=== PATIENT | female | born 1985 | race Caucasian/White ===

== ENCOUNTER 2022-05-19 08:43 | Emergency (ER) | payer BC ==
--- OUTSIDE RECORDS SUMMARY | 2022-05-19 08:45 | XMS REPORT | Clinical Summary ---
:[address] [facility] MD [facility] Address [address] [place] [address] Care Team Providers Name Role Phone Samantha Johnston MD Primary Care Provider [phone] Ian Sneed MD Unavailable Allergies Active Allergy Reactions Severity Noted Date Comments Cefuroxime Axetil Hives 05/15/2017 Medications Medication Sig Dispensed Refills Start Date End Date Status frovatriptan as needed. 3 09/30/2016 Activ e (FROVA) 2.5 MG tablet cetirizine (ZyrTEC) Take 10 mg by 0 Active 10 mg tablet mouth daily. etonogestrel 0 02/07/2020 Active (NEXPLANON SUBDERMAL) cholecalciferol, Take by mouth. 0 Active vitamin D3, (Vitamin D3) 50 mcg (2,000 unit) capsule NUVARING 0.12-0.015 INSERT 11 05/02/2017 09/30/19 Discontinued mg/24 hr vaginal VAGINALLY 22 (Other ) ring DIRECTED. ergocalciferol 0 09/24/2020 09/30/19 Disc ontinued (DRISDOL) 50,000 22 (Ot her ) units capsule Active Problems Problem Noted Date Lump in right breast 05/15/2017 Overview: Images from the original note were not i ncluded. H/O RIGHT breast lump evaluated in 2017 with US findings suggestive of normal ridge of fibroglandular tissue with mild fibrocystic changes and cysts noted. Imaging performed at [facility], [place]: 12/28/2019 BDMMG+US (BIRADS 3) 08/28/2020 R US (BIRADS 2) 01/03/2020 [facility] Common Hereditary Cance r Panel is negative for 47 gene(s) variants that are associated with genetic disorders. Encounters Date Type Specialty Care Team Description 10/15/2021 Telemedicine Genetics Yuki Laguna Family history of Y, DRY COLOR TESTER malignant neoplasm of Melyssa, breast Linda B, MS, CGC 09/30/2021 Clinical Support Cancer Prevention Yuki Laguna No Sh ow Y, DRY COLOR TESTER 09/30/2021 Ancillary Procedure Radiology Lump in right breast; Dense breast 09/30/2021 Ancillary Procedure Radiology Lump in right breast; Dense breast 09/30/2021 Office Visit Cancer Prevention Klever Baker L, Lump in right breast (Primary Dx); DRY COLOR TESTER Dense breast; Yuki Laguna Family history of malignant neoplasm of breast; Y, DRY COLOR TESTER Encounter for o ther screening for malignant neoplasm of breast 09/30/2021 Travel after 05/19/2021 Immunizations Name Administration Dates Next Due SoundOut SARS-CoV-2 Vaccination 08/18/2021 Surgical History Surgery Date Site/Laterality Comments SECTION, LOW TRANSVERSE 08/03/2012 - 08/02/2013 LASIK 01/01/2017 - 01/30/2017 Medical History Medical History Date Comments Migraine 07-03-2016 First time receiving treatment for Unspecified lump in unspecified breast 01-01-2017 A bout when I first noticed. Uncomplicated asthma 1992 rescue inhaler prn asthma due to seasonal allergies o r exercise Polycystic ovarian syndrome 2001 Discharge from nipple 07/2016 spontaneous, bilat eral R>L, stopped 11/2016 / now occurs only with manipulation Family History Medical History Relation Name Comments Breast cancer Maternal Aunt Salvador Samayoa Diabetes Maternal Grandmother Kaela Shelby Stroke Maternal Grandmother Kaela Shelby Colon cancer Maternal Uncle 1 Colt Shelby >50 Diabetes Maternal Uncle 2 Tahir Shelby Breast cancer Mother Cindy Esparza Lumpectomy, radi ation Colon cancer Paternal Cousin 1 Early 40'sSurg irene, radiation Diabetes Paternal Grandfather Yamil Esparza Multiple Myeloma Paternal Grandfather Yamil Howebrey 60's Breast cancer Paternal Grandmother Jessica Araujokerman 80's Ovarian cancer Neg Hx Pancreatic cancer Neg Hx Relation Name Status Comments Father Alive Maternal Aunt Salvador Samayoa Alive Maternal Grandfather (Age 90's) Maternal Grandmother Kaela Shelby (Age 80's-90's) Maternal Uncle 1 Colt Shelby Alive Parkinson's dis ease Maternal Uncle 2 Tahir Shelby Alive Maternal Uncle 3 (Age 80's) Maternal Uncle 4 Alive Maternal Uncle 5 Alive Maternal Uncle 6 (Age 80's) Maternal Uncle 7 (Age 90's) Mother Cindy Esparza Alive JEANA/BSO in 40's, heavy bleeding, uterin e fiboirds Nephew Alive Paternal Cousin 1 Alive Paternal Cousin 2 Alive Paternal Grandfather Yamil Esparza (Age 80's) Paternal Grandmother Jessica Maguire (Age 93) Paternal Uncle (Age 68) Sister Alive Son 1 Alive Son 2 Alive Social History Tobacco Use Types Packs/Day Years Used Date Former Smoker 0.25 1 Smokeless Tobacco: Never Used Comments: Would randomly smoke between 1 8- 19 Alcohol Use Standard Drinks/Week Comments Yes 1 (1 standard drink = 0.6 oz pure alcoho l) Sex Assigned at Date Recorded Female 09/23/2021 8:33 PM [employer] Job Start Date Occupation Industry Not on file Not on file Not on file Obstetrics History Para Term AB IAB SAB Ectopic Multiple Living Live Births 2 1 2 Date Outcome GA Total Labor/2nd/3rd Weight Sex Delivery Anes PTL Liset A 1 A5 Name Clin Labor AB Comments 1 set of twins Menarche: at age 13 Parity: at age 26 OCPs - pills x 3 years and NuvaRing x 9 years. Nexplanon since 2019 to current. HRTL clomic x 1 cycle Patient denies any history of abnormal p ap smears. Patient denies any history of breast stephy jose or breast biopsy. Last Filed Vital Signs Vital Sign Reading Time Taken Comments Blood Pressure 131/87 09/30/2021 9:49 AM [employer] Pulse 100 09/30/2021 9:49 AM [employer] Temperature - - Respiratory Rate 18 09/30/2021 9:49 AM [employer] Oxygen Saturation - - Inhaled Oxygen Concentration - - Weight 77.6 kg (171 lb 1.2 oz) 09/30/2021 9:49 AM [employer] Height 170.5 cm (5' 7.13") 09/30/2021 9:49 AM [employer] Body Mass Index 26.69 09/30/2021 9:49 AM [employer] Plan of Treatment Health Maintenance Due Date Last Done Comments COVID-19 Vaccination (2 - Booster for Dane series) 10/13/2021 08/18/2021 Procedures Procedure Name Priority Date/Time Associated Comments Diagnosis US BREAST COMPLETE Routine 09/30/2021 12:47 PM Lump in right R esults for this BILATERAL [employer] breast procedure are in Dense breast the results section. MAMMO DIGITAL Routine 09/30/2021 11:26 AM Lump in right Result s for this DIAGNOSTIC BILATERAL [employer] breast procedure are in W NEAL Dense breast the results section. after 05/19/2021 Results US Breast Complete - Bilateral (09/30/2021 12:47 PM [employer]) Anatomical Region Laterality Modality Breast Bilateral Ultrasound Specimen (Source) Anatomical Collection Method Collection Time Re ceived Time Location / / Volume Laterality 09/30/2021 2:08 PM [employer] Impressions 09/30/2021 2:08 PM [employer] 1: Lymph node in the axillary tail of the left breast is benign and correlates with mammography. 2: Scattered cysts in both breasts are benign. Recommend continued clinical management of the areas of concern to in clude correlation with physical exam, and recommend initiation of annual scree polo mammography when clinically indicated, per ACR/SBI guidelines. The findings and recommendations were di scussed with the patient at time of the examination. The importance of clinical follow up was stressed. BI-RADS Category 2: Benign Finding(s) Narrative 09/30/2021 2:08 PM [employer] CLINICAL INDICATION: Patient is a 35 year old female and is s een for multiple right breast lumps. Strong family history of breast cancer. FILMS COMPARED Prior imaging studies performed at [facility] location on 08/30/2020, and at [facility] on 09/28/2020 were reviewed. Images were obtained in multiple scannin g planes. Real-time sonographic imaging of both br easts (including all 4 quadrants and retroareolar region) was performed. 1: There is an oval normal lymph node in the axillary tail of the left breast. This finding correlates with mammography . 2: There are benign scattered anechoic cysts noted in both breasts. No suspicious solid mass or acoustic abnorm ality is identified. A cluster of anechoic cysts are noted at the right br east 1 o'clock position 6 cm from the nipple that possibly correlates with pat ient's palpable area of concern. No suspicious sonographic abnormality is id entified at the right breast 1 o'clock position 11 cm from the nipple or 6 o'cl ock position 1 cm from the nipple to correlate with the additional palpable a reas of concern. Procedure Note Natali Brown MD - 09/30/2021 CLINICAL INDICATION: Patient is a 35 year old female and is s een for multiple right breast lumps. Strong family history of breast cancer. FILMS COMPARED Prior imaging studies performed at an [facility] [place] location on 08/30/2020, and at [facility] on 09/28/2020 were reviewed. Images were obtained in multiple scannin g planes. Real-time sonographic imaging of both br easts (including all 4 quadrants and retroareolar region) was performed. 1: There is an oval normal lymph node in the axillary tail of the left breast. This finding correlates with mammography . 2: There are benign scattered anechoic c ysts noted in both breasts. No suspicious solid mass or acoustic abnorm ality is identified. A cluster of anechoic cysts are noted at the right br east 1 o'clock position 6 cm from the nipple that possibly correlates with pat ient's palpable area of concern. No suspicious sonographic abnormality is id entified at the right breast 1 o'clock position 11 cm from the nipple or 6 o'cl ock position 1 cm from the nipple to correlate with the additional palpable a reas of concern. IMPRESSION: 1: Lymph node in the axillary tail of th e left breast is benign and correlates with mammography. 2: Scattered cysts in both breasts are b enign. Recommend continued clinical management of the areas of concern to in clude correlation with physical exam, and recommend initiation of annual scree polo mammography when clinically indicated, per ACR/SBI guidelines. The findings and recommendations were di scussed with the patient at time of the examination. The importance of clinical follow up was stressed. BI-RADS Category 2: Benign Finding(s) Yuki Laguna APN IMG US ORDERABLES (ABNORMAL) Mammography Digital Diagnostic Bilateral with Neal (09/30/2021 11:26 AM [employer]) Anatomical Region Laterality Modality Breast Bilateral Mammography Specimen (Source) Anatomical Collection Method Collection Time Re ceived Time Location / / Volume Laterality 09/30/2021 1:16 PM [employer] Impressions 09/30/2021 1:16 PM [employer] Asymmetry in the left axillary tail is indeterminate. Ultrasound has been ordered for further evaluation and sched uled to immediately follow. BI-RADS Category 0: Incomplete: Needs Additional Imaging Caitlyn luation Narrative 09/30/2021 1:16 PM [employer] CLINICAL INDICATION: Patient is a 35 year old female and is s een for breast lump right breast. Strong family history of breast cancer. MAMMO DIGITAL DIAGNOSTIC BILATERAL W SUZANNE O Digital Mammogram evaluated with Compute r Aided Detection (CAD). COMPARISON: Prior imaging studies performed at an [place] [facility] on 04/21/2019 and 12/28/2019, and at [facility] on 09/28/2020 were reviewed. FINDINGS: The breasts are extremely dense, which l owers the sensitivity of mammography. There is an asymmetry in the axillary ta il of the left breast. This may represent a prominent lymph node. Patien t had recent vaccination left arm approximately 1 month ago. Bilateral scattered oval masses are most consistent with benign cysts, as demonstrated on previous sonography. N o suspicious mammographic abnormality is identified in the inferior or superior r ight breast to correlate with the palpable areas of concern, as indicated with triangular markers. Tomosynthesis performed in CC and MLO pr ojections. Procedure Note Natali Brown MD - 09/30/2021 CLINICAL INDICATION: Patient is a 35 year old female and is s een for breast lump right breast. Strong family history of breast cancer. MAMMO DIGITAL DIAGNOSTIC BILATERAL W SUZANNE O Digital Mammogram evaluated with Compute r Aided Detection (CAD). COMPARISON: Prior imaging studies performed at an [place] [facility] on 04/21/2019 and 12/28/2019, and at [facility] on 09/28/2020 were reviewed. FINDINGS: The breasts are extremely dense, which l owers the sensitivity of mammography. There is an asymmetry in the axillary ta il of the left breast. This may represent a prominent lymph node. Patien t had recent vaccination left arm approximately 1 month ago. Bilateral scattered oval masses are most consistent with benign cysts, as demonstrated on previous sonography. No suspicious mammographic abnormality is identified in the inferior or superior r ight breast to correlate with the palpable areas of concern, as indicated with triangular markers. Tomosynthesis performed in CC and MLO pr ojections. IMPRESSION: Asymmetry in the left axillary tail is i ndeterminate. Ultrasound has been ordered for further evaluation and sched uled to immediately follow. BI-RADS Category 0: Incomplete: Needs Additional Imaging Caitlyn luation Yuki Laguna APN IMG MAMMOGRAPHY ORDERABLES after 05/19/2021 Insurance Payer Benefit Plan / Subscriber ID Effective Dates Phone Addre ss Type Group [employer] [place] O [id number] 2019-Present PO AFSHAN X [id number] O [employer] [employer] [phone] Care Teams Shake Cutter Relationship Specialty Start Date End Date Samantha Johnston PCP - General Breast Surgery 05/12/17 MD Lola [address] [place] [id number] Ian Sneed MD PCP - External Referring 05/12/[address] [place] [id number]
--- OUTSIDE RECORDS SUMMARY | 2022-05-19 08:46 | XMS REPORT | Continuity of Care Document ---
:1985 Author Organization [facility] t Address [address] [place] [address] Care Team Providers Name Role Phone [phone] Primary Care Physician Unavailable SYSTEM, PROVIDER NOT IN Attending Clinician Unavailable YUKI FERRIS Attending Clinician Unavailable Yuki Ferris APN Attending Clinician Melyssa LOCKETT, Linda CLOUD Attending Clinician [phone] Klever Baker APN Attending Clinician KLEVER BAKER Attending Clinician Unavailable TIMBO CARRERO Attending Clinician Unavailable ALAINA CORDERO Attending Clinician Unavailable Payers Payer Name Policy Type Policy Number Effective Date Expiration Date S glynn [place] [id number] 2019 BLUE/BLUE 00:00:00 [employer] HMO POS OPEN [id number] 2016 2018 ACCESS 00:00:00 00:00:00 Problems Condition Condition Condition Status Onset Resolution Last Treating Co mments Source Name Details Category Date Date Treatment Clinician Date Lump in Lump in Disease Active 2016-08 Overview: Univ ers right right 0-13 Formattin ity of breast breast 00:00: g of this [place] 00 note might be Anderso different n from the Cancer original. Center Images from the original note were not included. H/O RIGHT breast lump evaluated in 2017 with US findings suggestiv e of normal ridge of fibroglan dular tissue with mild fibrocyst ic changes and cysts noted.Abigail ging performed at [facility], [place] t:12/28/19 20 BDMMG+US (BIRADS 3)08/28/19 21 R US (BIRADS 2) 0 [facility] Cancer Panel is negative for 47 gene(s) variants that are associate d with genetic disorders . Allergies, Adverse Reactions, Alerts Allergy Allergy Status Severity Reaction(s) Onset Inactive Treating Comm ents Source Name Type Date Date Clinician CEFUROXI DRUG Active Hives 2016-08 ME INGREDI 0-13 Anderso AXETIL 00:00: n 00 CEFUROXI DRUG Active Hives 2016-08 ME INGREDI 0-13 Anderso AXETIL 00:00: n 00 CEFUROXI DRUG Active Hives 2016-08 ME INGREDI 0-13 Anderso AXETIL 00:00: n 00 CEFUROXI DRUG Active Hives 2016-08 MD BEVERLY INGREDI 0-13 Anderso AXETIL 00:00: n 00 CEFUROXI DRUG Active Hives 2016-08 ME INGREDI 0-13 Anderso AXETIL 00:00: n 00 CEFUROXI DRUG Active Hives 2016-08 ME INGREDI 0-13 Anderso AXETIL 00:00: n 00 Cefuroxi Propensi Active Hives 2016-08 Univer s me ty to 0-13 ity of Axetil adverse 00:00: [place] reaction 00 [facility] Family History Family Member Diagnosis Comments Start Date Stop Date Source Natural father [facility] MD [facility] Maternal aunt Breast cancer Universi ty [facility] Espinoza son Cancer Center Maternal [facility] MD [facility] Maternal [facility] MD [facility] Maternal Stroke [facility] MD [facility] Maternal uncle Colon cancer Universi ty [facility] MD Doran son Cancer Center Maternal uncle Diabetes [facility] Espinoza son Cancer Center Natural mother Breast cancer Univers ity [facility] Espinoza son Cancer Center Nephew [facility] P[facility] Paternal Diabetes [facility] MD [facility] Paternal Multiple Myeloma [facility] Paternal [facility] [place] [facility] Friend Paternal uncle [facility] MD Espinoza tineo Cancer Center Natural sister [facility] MD Espinoza tineo Cancer Center Natural son [facility] MD Espinoza tineo [facility] Center Family member Ovarian cancer [facility] [place] MD Espinoza tineo [facility] Center Family member Pancreatic cancer Univ [facility] [place] MD Espinoza tineo [facility] Center Social History Social Habit Start Date Stop Date Quantity Comments Source Alcohol intake 2021-10-15 2021-10-15 Current drinker Unive rsity of 00:00:00 00:00:00 of alcohol [place] MD Espinoza tineo (finding) [facility] Tobacco use and 2020-09-28 2020-09-28 Smokeless Universit y of exposure 00:00:00 00:00:00 tobacco non-user [facility] Tobacco Comment 2020-09-28 2020-09-28 Would randomly Unive rsity of 00:00:00 00:00:00 smoke between [place] MD Louise rios [facility] Cigarettes smoked 2020-09-28 2020-09-28 Univers ity of current (pack per 00:00:00 00:00:00 [facility] Sh[facility] ) - Reported Cancer Ce nter Cigarette 2020-09-28 2020-09-28 University of pack-years 00:00:00 00:00:00 [place] MD Espinoza tineo [facility] Sex Assigned At [birth year] F Universit y of 00:00:00 00:00:00 [place] MD Espinoza tineo [facility] Smoking Status Start Date Stop Date Source Ex-smoker 2020-09-28 00:00:00 2020-09-28 00:00:00 Universi ty [facility] Medications Ordered Filled Start Stop Current Ordering Indication Dosage Frequency Signature Comments Components Source Medication Medication Date Date Medication? Clinician (SIG) Name Name cetirizine Yes 10mg Take 10 mg U nivers (ZyrTEC) 10 2-28 by mouth ity of mg tablet 09:52: daily. [place] Angel Luis gonzales [facility] cholecalcif Yes Take by Uni vers lee, 2-28 mouth. ity of vitamin D3, 09:52: [place] (Vitamin 07 D3) 50 mcg Anderso (2,000 n unit) Cancer capsule Center ergocalcife 2021- No Unive rs rol 09-24 ity of (DRISDOL) 00:00: 00:00 [place] 50,000 00 :00 units Erika capsule n Cancer Center etonogestre Yes Univjef s l 7-07 ity of (NEXPLANON 00:00: [place] SUBDERMAL) 00 MD Erika gonzales Cancer Friend NUVARING 2021- No INSERT Mohini s 0.12-0.015 05-02 VAGINALLY ity of mg/24 hr 00:00: 00:00 [place] vaginal 00 :00 DIRECTED. MD aaron gonzales [facility] frovatripta Yes as needed. Univers n (FROVA) 09-30 ity of 2.5 MG 00:00: [place] tablet 00 MD Erika gonzales [facility] Immunizations Ordered Filled Immunization Date Status Comments Sour e Immunization Name Name Dane SARS-CoV-2 2021-08-18 Completed Univer sity of Vaccination 00:00:00 Ambrosio foss [facility] Friend Vital Signs Vital Name Observation Time Observation Value Comments Source HEIGHT 2020-09-28 11:09:00 170.5 cm WEIGHT 2020-09-28 11:09:00 75.9 kg Systolic blood 2021-09-30 15:49:00 131 mm[Hg] Univer sity of pressure [facility] Diastolic blood 2021-09-30 15:49:00 87 mm[Hg] Unive rsity of pressure [facility] Heart rate 2021-09-30 15:49:00 100 /min Universi ty Luis [facility] Respiratory rate 2021-09-30 15:49:00 18 /min Univ ersity of [facility] Body height 2021-09-30 15:49:00 170.5 cm Universi ty [facility] Body weight 2021-09-30 15:49:00 77.6 kg Universi ty [facility] BMI 2021-09-30 15:49:00 26.69 kg/m2 Universi ty [facility] Procedures Procedure Date / Time Performed Performing Clinician Sour e US BREAST COMPLETE 2021-09-30 18:47:33 Yuki Ferris [facility] [place] BILATERAL MD Cruz [facility] er Center MAMMO DIGITAL 2021-09-30 17:26:00 Yuki Ferris [facility] [place] DIAGNOSTIC BILATERAL W MD [facility] Plan of Care Planned Activity Planned Date Details Comments Source Future Scheduled 2021-10-25 COVID-19 Vaccination Uni [facility] Test 10:07:34 (2 - Booster for [facility] Cancer Dane series) [code Center = COVID-19 Vaccination (2 - Booster for Dane series)] Encounters Start End Encounter Admission Attending Care Care Encounter Source Date/Time Date/Time Type Type Clinicians Facility Department ID 2020-09-14 Outpatient SYSTEMRICK MDA [id number] 11:45:16 PROVIDER Rogelio gonzales 2021-10-15 2021-10-15 Outpatient EL RICK FERRIS MDA [id number] 10:01:33 10:29:15 YUKIMARY LOU gonzales 2021-10-15 2021-10-15 Telemedici Yuki Ferris [id number] Univers 10:00:00 10:29:15 Linda Beard [id number] ity of 3.412.2.7 [place] .3.112109 [facility] 2021-09-30 2021-09-30 Clinical Jase 1.2.840.1 [id number] Univers 15:00:00 15:20:00 Support Yuki Lopez [id number] ity of 3.412.2.7 [place] .3.000537 MD Myrna gonzales [facility] 2021-09-30 2021-09-30 Ancillary 1.2.840.1 [id number] Univers 12:15:00 14:00:00 Procedure [id number] it y of 3.412.2.7 [place] .3.760434 MD [facility] christian [facility] 2021-09-30 2021-09-30 Ancillary 1.2.840.1 [id number] [facility] 11:30:00 12:30:00 Procedure [id number] it y of 3.412.2.7 [place] .3.024707 .8 [facility] 2021-09-30 2021-09-30 Outpatient EL MDA MDA [id number] 11:27:52 11:27:52 Rogelio o n 2021-09-30 2021-09-30 Outpatient EL MDA MDA [id number] 10:41:03 10:41:03 Rogelio o n 2021-09-30 2021-09-30 Office Klever Baker 1.2.840.1 [id number] [facility] 10:00:00 10:38:39 Visit Yuki Ferris Y 93082.1.1 ity of 3.412.2.7 [place] .3.048718 .8 [facility] 2021-09-30 2021-09-30 Outpatient KESHAWN, MDA MDA [id number] 09:37:40 10:38:39 KLEVER Rogelio o christian 2021-09-30 2021-09-30 Travel 1.2.840.1 [id number] [place] [facility] 00:00:00 00:00:00 [id number] 350.1.13.41 ity of 3.412.2.7 2.[place].7.3.698 [place] .[id number] 084.8 .8 [facility] 2020-09-28 2020-09-28 Outpatient [facility], MDA MDA [id number] 13:33:35 13:33:35 TIMBO Mercado o christian 2020-09-28 2020-09-28 Outpatient EL REFINEI, MDA MDA [id number] 13:03:28 13:03:28 ALAINA gonzales 2020-09-28 2020-09-28 Outpatient EL REFINETTI, MDA MDA [id number] 13:03:27 13:03:27 ALAINA Mercado o christian 2020-09-28 2020-09-28 Outpatient REFINETTI, MDA MDA [id number] 13:03:25 13:03:25 ALAINA Vasquezers o christian 2020-09-28 2020-09-28 Outpatient VICKI CORDERO MDA MDA [id number] 13:03:24 13:03:24 ALAINA Vasquezers o christian 2020-09-28 2020-09-28 Outpatient VICKI CARRERO MDA MDA [id number] 12:47:21 12:47:21 TIMBO gonzales 2020-09-28 2020-09-28 Outpatient VICKI CORDERO, RICK CABRERA [id number] 11:04:10 12:27:10 ALAINA Rogelio o christian 2020-09-28 2020-09-28 Outpatient VICKI CORDERO, RICK CABRERA [id number] 10:56:20 10:56:39 ALAINA Rogelio o christian 2020-09-25 2020-09-25 Outpatient VICKI CORDERO MDA MDA [id number] 14:46:44 15:04:50 ALAINA gonzales 2020-07-13 2020-07-13 Outpatient VICKI CORDERO, RICK CABRERA [id number] 17:27:05 17:27:05 ALAINA gonzales Results Test Description Test Time Test Comments Results Result Comments Source Mammography Digital Diagnostic Bilateral with Neal 2021-09-04 8 19:16:33 Test Item Value Reference Range Interpretation Comme [facility] Radiology Study observation (narrative) (test code = 14447-2) IMP (test code = IMP) Asymmetry in the left axillary tail is indeterminate. Ultrasound has beenordered for further evaluation and scheduled to immediately follow. BI-RADS Category 0:Incomplete: Needs Additional Imaging Evaluation PXN (test code = PXN) Natali Brown MD - 09/30/2021 CLINICAL INDICATION:Patient is a 35 year old female and is seen for breast lump right breast. Strongfamily history of breast cancer. MAMMO DIGITAL DIAGNOSTIC BILATERAL W TOMODigital Mammogram evaluated with Computer Aided Detection (CAD). COMPARISON:Prior imaging studies performed at an outside location on 04/21/2019 and12/28/2019, and at [facility] on 09/28/2020 werereviewed. FINDINGS:The breasts are extremely dense, which lowers the sensitivity of mammography. There is an asymmetry in the axillary tail of the left breast. This mayrepresent a prominent lymph node. Patient had recent vaccination left armapproximately 1 month ago. Bilateral scattered oval masses are most consistent with benign cysts, asdemonstrated on previous sonography. No suspicious mammographic abnormality isidentified in the inferior or superior right breast to correlate with thepalpable areas of concern, as indicated with triangular markers. Tomosynthesis performed in CC and MLO projections. IMPRESSION:Asymmetry in the left axillary tail is indeterminate. Ultrasound has beenordered for further evaluation and scheduled to immediately follow. BI-RADS Category 0:Incomplete: Needs Additional Imaging Evaluation Lab Interpretation (test code = Abnormal 16913-7) University [facility] Friend
[2022-05-19] MEDS ORDERED: ONDANSETRON 4 MG/2 ML VIAL ONE (09:44)
[2022-05-19] MEDS ORDERED: MORPHINE 4 MG/ML SYR ONE (09:44)
[2022-05-19 09:56] LABS: Hematocrit 39.7 % (36.0-45.0); Lymphocytes % 24.8 % (15.3-44.8); MCV 91.5 fL (80-100); MPV 8.3 fL (7.6-11.3); RBC Red Blood Cell Count 4.34 M/uL (3.86-4.86)
[2022-05-19 10:12] LABS: Albumin 3.8 g/dL (3.4-5.0); Bilirubin Total 0.5 mg/dL (0.2-1.0); Potassium 3.7 mmol/L (3.5-5.1); Protein, Total 7.3 g/dL (6.4-8.2)
[2022-05-19 10:27] LABS: Urine Blood Negative (Negative); Urine Glucose Negative (Negative); Urine Protein Negative (Negative)
--- NOTE | 2022-05-19 11:00 | RAD REPORT ---
EXAM DESCRIPTION: CT - Abdomen Pelvis W Contrast - 05/19/2022 10:34 am CLINICAL HISTORY: Abdominal pain COMPARISON: 2014 TECHNIQUE: Computed axial tomography of the abdomen pelvis was obtained. 100 cc Isovue-300 was admin istered intravenously. Oral contrast was not requested which limits evaluation of bowel and appendix All CT scans are performed using dose optimization technique as appropriate and may include automated exposure control or mA/KV adjustment according to patient size. FINDINGS: Mild fatty liver The Spleen, pancreas, adrenal and left kidney appear unremarkable. Tiny right renal calculi. No hydronephrosis There is no evidence of diverticulitis. Small hernia 6.3 centimeter cystic mass right adnexa has mildly increased in size. Previously it measured 5.4 cent imeters. No significant free fluid. IMPRESSION: 6.3 centimeter cystic mass right adnexa probably either an ovarian or paraovarian cyst. No significant free fluid
--- NOTE | 2022-05-19 12:00 | EDPHYS ---
Physician Documentation [facility] Name: Ghislaine Cee Age: 36 yrs Sex: Female : 1985 Arrival Date: 05/19/2022 Time: 08:45 Bed 12 Private MD: Joseph Lemus ED Physician Krystal Parker HPI: 05/19 09:18 This 36 yrs old Female presents to ER via Ambulatory with complaints of Abdominal Pain, jmm Back Pain. 09:18 The patient presents with abdominal pain. Onset: The symptoms/episode began/occurred jmm gradually, 3 day(s) ago. The symptoms do not radiate. Associated signs and symptoms: Pertinent positives:. Is a 36-year-old female with history of asthma migraines the presents emerged part with complaints of pelvic pain which radiates to the back. Symptoms began approximately 3 to 4 days ago. Patient has had history of polycystic ovaries. Patient is currently taking control. 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 - Social history:: Smoking status: Patient denies any tobacco usage or history of. ROS: 09:18 Constitutional: Negative for fever, chills, and weight loss, Cardiovascular: Negative jmm for chest pain, palpitations, and edema, Respiratory: Negative for shortness of breath, cough, wheezing, and pleuritic chest pain. 09:18 Abdomen/GI: Positive for abdominal pain. 09:18 All other systems are negative. Exam: 09:18 Constitutional: This is a well developed, well nourished patient who is awake, alert, jmm and in no acute distress. Head/Face: atraumatic. Eyes: EOMI, no conjunctival erythema appreciated ENT: Moist Mucus Membranes Neck: Trachea midline, Supple Chest/axilla: Normal chest wall appearance and motion. Cardiovascular: Regular rate and rhythm. No edema appreciated Respiratory: Normal respirations, no respiratory distress appreciated 09:18 Back: Normal ROM Skin: General appearance color normal MS/ Extremity: Moves all extremities, no obvious deformities appreciated, no edema noted to the lower extremities Neuro: Awake and alert Psych: Behavior is normal, Mood is normal, Patient is cooperative and pleasant 09:18 Abdomen/GI: Inspection: abdomen appears normal, Bowel sounds: normal, Palpation: soft, mild abdominal tenderness, in the suprapubic area and right lower quadrant. Vital Signs: 09:17 BP 145 / 88; Pulse 93; Resp 14; Temp 98.8; Pulse Ox 100% on R/A; Weight 79.38 kg; vg1 Height 5 ft. 7 in. (170.18 cm); Pain 4/10; 09:58 BP 125 / 78; Pulse 78; Resp 16; Pulse Ox 99% on R/A; tp1 11:55 BP 137 / 85; Pulse 70; Resp 16; Pulse Ox 100% on R/A; jw7 09:17 Body Mass Index 27.41 (79.38 kg, 170.18 cm) vg1 MDM: 09:18 Patient medically screened. [facility] 11:59 Data reviewed: vital signs, nurses notes. Counseling: I had a detailed discussion with latoya the patient and/or guardian regarding: the historical points, exam findings, and any diagnostic results supporting the discharge/admit diagnosis, radiology results, the need for outpatient follow up, to return to the emergency department if symptoms worsen or persist or if there are any questions or concerns that arise at home. 05/19 09:18 Order name: CBC with Diff [facility] 05/19 09:18 Order name: CMP [facility] 05/19 09:18 Order name: Lipase [facility] 05/19 10:00 Order name: CBC with Automated Diff [facility] 05/19 10:12 Order name: Comprehensive Metabolic Panel [facility] 05/19 10:12 Order name: Lipase [facility] 05/19 09:18 Order name: IV Saline Lock; Complete Time: 09:53 [facility] 05/19 09:18 Order name: CT Abd/Pelvis - IV Contrast Only; Complete Time: 11:00 [facility] 05/19 10:27 Order name: Urine Dipstick-Ancillary; Complete Time: 10:29 [facility] 05/19 11:42 Order name: Pelvis Complete; Complete Time: 12:02 [facility] 05/19 09:18 Order name: Labs collected and sent; Complete Time: 09:54 [facility] Administered Medications: 09:50 Drug: Zofran (Ondansetron) 4 mg Route: IVP; Site: right antecubital; tp1 12:02 Follow up: Response: No adverse reaction tp1 09:53 Drug: morphine 4 mg Route: IVP; Infused Over: 4 mins; Site: right antecubital; tp1 10:30 Follow up: Response: Pain is decreased tp1 12:13 Drug: Ketorolac 30 mg Route: IVP; Site: right antecubital; tp1 12:17 Follow up: Response: Medication administered at discharge. tp1 Disposition Summary: 05/19/22 12:00 Discharge Ordered Location: Home [facility] Condition: Stable [facility] Diagnosis - Other ovarian cysts [facility] Followup: [facility] - With: Angelita Terrazas MD - When: 2 - 3 days - Reason: Recheck today's complaints, Continuance of care, Re-evaluation by your physician Discharge Instructions: - Discharge Summary Sheet [facility] - Ovarian Cyst [facility] Forms: - Medication Reconciliation Form [facility] - Thank You Letter [facility] - Antibiotic Education [facility] - Prescription Opioid Use [facility] Prescriptions: - Diclofenac Sodium 75 mg Oral Tablet Sustained Release - take 1 tablet by ORAL route 2 times per day; 30 tablet; Refills: 0, Product [facility] Selection Permitted Addendum: 05/22/2022 03:24 STAFF ATTESTATION STATEMENT: I was immediately available onsite in the emergency s d2 department for consultation in the care of this patient. I did not see or examine this patient. Krystal Parker MD. Signatures: Dispatcher [employer] EDMS Danny Knight PA PA [facility] Tali Salgado, RN RN vg1 Aimee Foote RN RN tp1 Krystal Parker MD MD sd2 Corrections: (The following items were deleted from the chart) 05/19 11:42 11:20 Transvaginal Study (Probe)+US.RAD.BRZ ordered. [facility] EDAK 15:23 09:18 Constitutional: Negative for fever, chills, and weight loss, Cardiovascular: [facility] Negative for chest pain, palpitations, and edema, Respiratory: Negative for shortness of breath, cough, wheezing, and pleuritic chest pain, latoya 15:23 09:18 MS/extremity: Positive for pain, swelling, latoya klein :18 All other systems are negative, latoya klein
--- NOTE | 2022-05-19 12:00 | ER ---
Nurse's Notes [facility] Name: Ghislaine Cee Age: 36 yrs Sex: Female : 1985 Arrival Date: 05/19/2022 Time: 08:45 Bed 12 Private MD: Joseph Lemus Diagnosis: Other ovarian cysts Presentation: 05/19 09:17 Chief complaint: Patient states: RLQ pain that radiates to the right lower side of vg1 back, also states pelvic pain. Denies vomiting, states nausea. Denies any urinating pain, burning, or frequency . Coronavirus screen: Vaccine status: Patient reports receiving the 1st dose of the Covid vaccine. Client denies travel out of the [place] in the last 14 days. Ebola Screen: Patient negative for fever greater than or equal to 101.5 degrees Fahrenheit, and additional compatible Ebola Virus Disease symptoms Patient denies exposure to infectious person. Initial Sepsis Screen: Does the patient meet any 2 criteria? No. Patient's initial sepsis screen is negative. Does the patient have a suspected source of infection? No. Patient's initial sepsis screen is negative. Risk Assessment: Do you want to hurt yourself or someone else? Patient reports no desire to harm self or others. Onset of symptoms was May 15, 2022. 09:17 Method Of Arrival: Ambulatory vg1 09:17 Acuity: PAYTON 3 vg1 Triage Assessment: 09:21 General: Appears in no apparent distress. uncomfortable, Behavior is calm, cooperative. vg1 Pain: Complains of pain in posterior aspect of right lateral abdomen and right lower quadrant and pelvis Pain currently is 5 out of 10 on a pain scale. Quality of pain is described as sharp. 09:24 GI: Abdomen is flat, non-distended, Reports nausea. : Denies burning with urination, vg1 urinary frequency, urgency, vaginal bleeding. VAT PACKER: 09:24 LMP N/A - control method vg1 Historical: - Allergies: 09:21 Ceftin; vg1 - Home Meds: 09:21 Zyrtec Oral [Active]; Control [Active]; Albuterol Inhl [Active]; vg1 - PMHx: 09:21 Asthma; Migraine; vg1 - PSHx: 09:21 section; vg1 - Immunization history:: Client reports receiving the 1st dose of the Covid vaccine. - Social history:: Smoking status: Patient denies any tobacco usage or history of. Screenin:40 Abuse screen: Denies threats or abuse. Denies injuries from another. Nutritional tp1 screening: No deficits noted. Tuberculosis screening: No symptoms or risk factors identified. Fall Risk No fall in past 12 months (0 pts). No secondary diagnosis (0 pts). IV access (20 points). Ambulatory Aid- None/Bed Rest/Nurse Assist (0 pts). Gait- Normal/Bed Rest/Wheelchair (0 pts) Mental Status- Oriented to own ability (0 pts). Total Fabian Fall Scale indicates No Risk (0-24 pts). Assessment: 09:40 General: Appears in no apparent distress. uncomfortable, Behavior is calm, cooperative. tp1 Pain: Complains of pain in right lower quadrant Pain radiates to right low back Pain currently is 4 out of 10 on a pain scale. Quality of pain is described as sharp, Is intermittent. Neuro: Hagan Agitation-Sedation Scale (RASS): 0 - Alert and Calm Level of Consciousness is awake, alert, obeys commands, Oriented to person, place, time, situation. Cardiovascular: Patient's skin is warm and dry. Respiratory: Airway is patent Respiratory effort is even, unlabored, Respiratory pattern is regular. GI: Abdomen is flat, non-distended, Abd is soft and non tender Reports nausea. : No signs and/or symptoms were reported regarding the genitourinary system. EENT: No signs and/or symptoms were reported regarding the EENT system. Derm: Skin is pink, warm \T\ dry. Musculoskeletal: Circulation, motion, and sensation intact. 10:40 Reassessment: Patient appears in no apparent distress at this time. No changes from tp1 previously documented assessment. Patient and/or family updated on plan of care and expected duration. Pain level reassessed. Patient is alert, oriented x 3, equal unlabored respirations, skin warm/dry/pink. states pain has decreased. 11:36 Reassessment: Patient appears in no apparent distress at this time. No changes from tp1 previously documented assessment. Patient is alert, oriented x 3, equal unlabored respirations, skin warm/dry/pink. states pain is coming back, rates pain 2/10. Vital Signs: 09:17 BP 145 / 88; Pulse 93; Resp 14; Temp 98.8; Pulse Ox 100% on R/A; Weight 79.38 kg; vg1 Height 5 ft. 7 in. (170.18 cm); Pain 4/10; 09:58 BP 125 / 78; Pulse 78; Resp 16; Pulse Ox 99% on R/A; tp1 11:55 BP 137 / 85; Pulse 70; Resp 16; Pulse Ox 100% on R/A; jw7 09:17 Body Mass Index 27.41 (79.38 kg, 170.18 cm) vg1 ED Course: 08:45 Patient arrived in ED. as 08:45 Joseph Lemus MD is Private Physician. as 08:51 [facility] 08:51 Krystal Parker MD is Attending Physician. jmm 09:21 Triage completed. vg1 09:24 Arm band placed on. vg1 09:40 Patient has correct armband on for positive identification. Bed in low position. Call tp1 light in reach. 09:40 Pulse ox on. NIBP on. tp1 09:47 Inserted saline lock: 20 gauge in right antecubital area, using aseptic technique. tp1 Blood collected. 10:03 Aimee Foote, LARRY is Primary Nurse. tp1 10:45 CT Abd/Pelvis - IV Contrast Only In Process Unspecified. EDMS 11:42 Pelvis Complete In Process Unspecified. EDMS 11:59 Angelita Terrazas MD is Referral Physician. jmm 12:01 No provider procedures requiring assistance completed. tp1 12:17 IV discontinued, intact, bleeding controlled, No redness/swelling at site. Pressure tp1 dressing applied. Administered Medications: 09:50 Drug: Zofran (Ondansetron) 4 mg Route: IVP; Site: right antecubital; tp1 12:02 Follow up: Response: No adverse reaction tp1 09:53 Drug: morphine 4 mg Route: IVP; Infused Over: 4 mins; Site: right antecubital; tp1 10:30 Follow up: Response: Pain is decreased tp1 12:13 Drug: Ketorolac 30 mg Route: IVP; Site: right antecubital; tp1 12:17 Follow up: Response: Medication administered at discharge. tp1 Medication: 09:40 VIS not applicable for this client. tp1 Outcome: 12:00 Discharge ordered by MD. klein 12:17 Discharged to home ambulatory. tp1 12:17 Condition: good 12:17 Discharge instructions given to patient, Instructed on discharge instructions, follow up and referral plans. medication usage, Demonstrated understanding of instructions, follow-up care, medications, Prescriptions given X 1. 12:17 Patient left the ED. tp1 Signatures: Dispatcher [employer] EDMS Danny Knight PA PA jmm Martinez, Amelia as Garcia, Victoria, RN RN vg1 Aimee Foote RN RN tp1 Aby Caceres jw7
--- NOTE | 2022-05-19 12:01 | RAD REPORT ---
EXAM DESCRIPTION: US - Pelvis Complete - 05/19/2022 11:41 am CLINICAL HISTORY: Pelvic pain COMPARISON: CT May 19, 2022 FINDINGS: Uterus measures 7 x 4 x 5 centimeters. Endometrial stripe is normal thickness. A fibroid i s not seen. Left ovary is normal in size and echotexture. The left adnexal unremarkable. 6 centimeters cystic right ovary. Blood flow to the right ovary. Right adnexa unremarkable. No significant free fluid IMPRESSION: 6 centimeter right ovarian cyst without significant free fluid. Follow-up ultrasound in several months recommended to assess stability/resolution
[2022-05-19] MEDS ORDERED: KETOROLAC 30 MG/ML INJ ONE (12:07)
[2022-05-19 12:22] VITALS: TEMP 98.8
[2022-05-19 12:24] VITALS: BP 137/85; O2SAT 100
== END 2022-05-19 12:17 | disposition home or self-care (01) ==
LOC: ER 08:43
DX: N83.201 Unspecified ovarian cyst, right side (principal)
CPT/HCPCS: 85025; 36415; 81003; 83690; 80053; 74177; 76856; 96375; 96374; 99284; Q9967; J2405

== ENCOUNTER 2022-05-28 09:45 | Day surgery (SDC) | payer BC ==
--- NOTE | 2022-05-27 13:53 | PREOPHP ---
Date of Admission: 05/28/2022 History Of Present Illness: A 36-year-old female, right-sided pelvic mass, probably paraovarian cyst . The patient has had this cyst since 2014, but it is starting to get larger, now it is becoming sym ptomatic. Tumor markers, CA-125 and HE4 are within normal limits. Ultrasound demonstrates a cyst at the same place for years, but went from 5.2 to about 6.5 cm. Infection; blood loss; anesthetic comp lications; injury to bladder, bowel, ureter; postoperative complications; clots in legs; pneumonia di scussed. The patient knows fully well this does not constitute all the possible problems that could occur during or following surgery. Knows that Dr. Martinez will be the main surgeon, I will be uche gamboa. Noticed that we may have to take the tube and ovary on that side if necessary, but we will tr y to avoid that of course and knows that if we cannot get it out laparoscopically, we will have to go to an open procedure, which she has had before with a . We would probably use the same C-s ection incision if need be, but hopefully we can avoid that. Family History: Not really relevant to this condition, but her father has had hypertension. Mother and father both had heart problems. Maternal aunt with breast cancer. The patient has had her breast evaluation before, but no signs of any kind of cancer. Allergies: CEFTIN APPARENTLY CAUSES HER TO HAVE SOME SORT OF A MILD ALLERGIC REACTION. Past Surgical History: She had a in 2012 with twins. Social History: She does not smoke. Physical Examination: HEENT: Clear. Pupils equal, round, and reactive to light and accommodation. Conjunctivae well perf used. No oral, lingual, or buccal lesions. Chest and Lungs: Clear. Heart: Without murmurs, thrills, heaves, or rubs. Breasts: Without masses on previous visit, although cystic. Extremities: Clear without edema, cyanosis, or clubbing. Pelvic: Shows the lesion is still present in the right adnexa and is lodged, certainly that is reall y new. Pap smear has been negative. Assessment And Plan: We will proceed with diagnostic laparoscopy, removal of this lesion, possibly r ight salpingo-oophorectomy if necessary, possible open procedure if necessary. NBC/MODL Voice ID: [id number]
[2022-05-27 14:30] LABS: Protime INR 0.97
[2022-05-27 14:41] LABS: Urine Bilirubin NEGATIVE (Negative); Urine Blood Negative (Negative); Urine Clarity Clear (Clear); Urine Color Colorless (Yellow); Urine Glucose NEGATIVE (Negative); Urine Protein NEGATIVE (Negative); Urine Urobilinogen Normal (Normal)
[2022-05-28] MEDS ORDERED: Ringers Lactate 1,000 ML IV ONE (10:14)
[2022-05-28] MEDS ORDERED: CLINDAMYCIN IV ONE (10:30)
[2022-05-28] MEDS ORDERED: NA CHLORIDE 0.9% IV ONE (10:30)
[2022-05-28] MEDS ORDERED: CLINDAMYCIN 600MG/D5W 600 MG/50 ML BAG IV ONE (11:07)
[2022-05-28] MEDS ORDERED: BUPIVACAINE 0.5% Inj,MDV 50 mL VIAL ONE (12:07)
[2022-05-28] MEDS ORDERED: BUPIVACAINE 0.5% PF 10 ML VIAL ONE (12:09)
[2022-05-28] MEDS ORDERED: MIDAZOLAM HCL 2 MG/2 ML INJ ONE (12:23)
[2022-05-28] MEDS ORDERED: LIDOCAINE 1% MPF 5 ML VIAL ONE (12:23)
[2022-05-28] MEDS ORDERED: ROCURONIUM 50 MG/5 ML VIAL IV ONE (12:23)
[2022-05-28] MEDS ORDERED: propofoL 200 MG/20 ML VIAL IV ONE (12:23)
[2022-05-28] MEDS ORDERED: FENTANYL CITR 100 MCG/2 ML ONE ×2 (12:23→12:35)
[2022-05-28] MEDS ORDERED: dexAMETHasone 10 MG/ML VIAL ONE (12:48)
[2022-05-28] MEDS ORDERED: KETOROLAC 30 MG/ML INJ ONE ×2 (12:48→14:41)
[2022-05-28] MEDS ORDERED: ONDANSETRON 4 MG/2 ML VIAL ONE (12:49)
[2022-05-28] MEDS ORDERED: GLYCOPYRROLATE 0.2 MG/ML SYR ONE (13:13)
[2022-05-28] MEDS ORDERED: NEOSTIGMINE 1 MG/ML -5 ML ONE (13:13)
[2022-05-28] MEDS ORDERED: Mastisol Adhesive Liq ONE (13:15)
[2022-05-28] MEDS ORDERED: MEPERIDINE HCL 25 MG/ML SYR ONE (13:39)
[2022-05-28 13:46] VITALS: O2SAT 100
--- NOTE | 2022-05-28 14:36 | OP ---
Surgeon: Ian Sneed MD Indications: Full preoperative counseling concerning procedure and possible complications including infection; blood loss; anesthetic complications; injury to bladder, bowel, ureter; postoperative complications; clots in legs; pneumonia. The patient knows fully this does not constitute all the possible problems that could occur during surgery. The patient knew prior to surgery, we have not have to remove her tube, ovary or on the right side. Procedure In Detail: After adequate general anesthesia, the patient was prepped and draped in the usual sterile manner. A time-out was performed. A supraumbilical incision was created vertically and carried to the fascia. The fascia was incised and tagged with 0 Vicryl on either side. Visualized instruments were placed. The uterus was noted to be normal. The left tube and ovary which were visualized later were completely normal. The right tube and ovary were involved and a large cystic mass. The ovary was basically part of this mass. Therefore with LigaSure device, the mass was removed. The tube was saved. There was minimal blood loss. The ovary was then drained and the fluid sent for cytologic exam. The ovary and now deflated cyst were inspected. The ovary appeared basically normal. It was difficult to say whether the cyst was part of the ovary or a parovarian cyst. Reinspection of the pelvis showed the appendix was normal, upper abdomen is normal, everything else was normal. All instruments were removed after irrigation. The supraumbilical incision was closed with Vicryl stitches that had been placed previously. The 2 smaller puncture baxter were closed with 3-0 plain and Steri-Strips added. The patient had been given 600 mg of Cleocin preop for prophylaxis. Tolerated all procedures well. Transferred to the recovery room in good condition. Final Diagnoses: Large right pelvic mass, paraovarian versus or ovarian cyst. Diagnostic laparoscopy, right oophorectomy with cyst removed at the same time. KWAN/HAKEEM Voice ID: [id number] Report ID: [id number] OMAR
--- NOTE | 2022-05-28 14:56 | DS ---
Hospital Course: The patient underwent removal the right ovary and large cyst that was attached to i t. Minimal blood loss was obtained. General anesthetic and 600 mg of Cleocin for prophylaxis. The ovary and cyst of course will be sent to pathology for examination. She will be observed for 2 hours and then dismissed. She has instructions to report any temperature elevation of [address], severe pain, heavy bleeding, or any other type of abnormalities. for tramadol for an algesia. We will see her in a week for postop followup. Final Diagnoses: Diagnostic laparoscopy, right oophorectomy, cystectomy, pathology pending. Prior to the procedure, the HE4 and CA-125 levels were normal and this mass has been present, although it is increasing in the size over the last 7 years. KWAN/HAKEEM Voice ID: [id number] Report ID: [id number]
[2022-05-28 15:56] VITALS: BP 119/58; TEMP 97.5
== END 2022-05-28 15:40 | disposition home or self-care (01) ==
LOC: OR 09:45
PROVIDERS: ATTEND Specialist
PROC: 0UT04ZZ Resection of Right Ovary, Percutaneous Endoscopic Approach (ICD-10-PCS; principal; 2022-05-28 11:30)
DX: N83.01 Follicular cyst of right ovary (principal); R19.03 Right lower quadrant abdominal swelling, mass and lump
CPT/HCPCS: 36415; 86900; 88108; 86850; 81025; 85610; 86901; 88305 ×2; 85730; 81003; 58661; J2704; J2001; J2250; J3010 ×2; J1100; J2175; J2710; J7120; J2405

== ENCOUNTER 2023-01-07 06:42 | Emergency (ER) | payer BC ==
--- OUTSIDE RECORDS SUMMARY | 2023-01-07 06:45 | XMS REPORT | Continuity of Care Document ---
:1985 Author Organization [facility] t Address [address] [facility] [address] [place] [id number] Care Team Providers Name Role Phone [phone] Primary Care Physician Unavailable SYSTEM, PROVIDER NOT IN Attending Clinician Unavailable Yuki Ferris APRN Attending Clinician Cate Colin APRN Attending Clinician YUKI FERRIS Attending Clinician Unavailable Melyssa LOCKETT, Linda CLOUD Attending Clinician [phone] Klever Baker APN Attending Clinician TIMBO CARRERO Attending Clinician Unavailable ALAINA CORDERO Attending Clinician Unavailable Payers Payer Name Policy Type Policy Number Effective Date Expiration Date Fernanda JACQUES O POS [id number] 2016 2018 00:00:00 OPEN ACCESS 00:00:00 Problems Condition Condition Condition Status Onset Resolution Last Treating Co mments Source Name Details Category Date Date Treatment Clinician Date Lump in Lump in Disease Active 2016-08 Overview: Univ ers right right 0-13 Formattin ity of breast breast 00:00: g of this [place] 00 note might be Anderso different n from the Cancer original. Center Images from the original note were not included. H/O RIGHT breast lump evaluated in 2017 with US findings suggestiv e of normal ridge of fibroglan dular tissue with mild fibrocyst ic changes and cysts noted.Abigail ging performed at [facility] [place] t:12/28/19 20 BDMMG+US (BIRADS 3)08/28/19 21 R US (BIRADS 2) 0 [facility] Cancer Panel is negative for 47 gene(s) variants that are associate d with genetic disorders . Allergies, Adverse Reactions, Alerts Allergy Allergy Status Severity Reaction(s) Onset Inactive Treating Comm ents Source Name Type Date Date Clinician Cefuroxi Propensi Active Hives 2016-08 Univer s me ty to 0-13 ity of Axetil adverse 00:00: [place] reaction 00 MD fernanda gonzales [facility] CEFUROXI DRUG Active Hives 2016-08 MD BEVERLY [...] n 00 CEFUROXI DRUG Active Hives 2016-08 [place] INGREDI 0-13 Anderso AXETIL 00:00: n 00 Family History Family Member Diagnosis Comments Start Date Stop Date Source Natural father [facility] Esp[facility] Maternal aunt Breast cancer [facility] [place] [facility] Maternal [facility] MD [facility] [place] Maternal Diabetes [facility] [place] Maternal Stroke [facility] [place] Maternal uncle Colon cancer [facility] Maternal uncle Diabetes [facility] Espinoza [facility] Natural mother Breast cancer [facility] Espinoza son [facility] Nephew [facility] Espinoza [facility] Paternal cousin Colon cancer Univers ity [facility] Espinoza [facility] Paternal Diabetes [facility] Abe rson [facility] [place] Paternal Multiple Myeloma [facility] MD Fish rson [facility] [place] Paternal Breast cancer [facility] MD Fish rson [facility] Paternal uncle [facility] Espinoza [facility] Natural sister [facility] Espinoza [facility] Natural son [facility] Espinoza [facility] Family member Ovarian cancer [facility] [place] [facility] Family member Pancreatic cancer [facility] [place] [facility] Social History Social Habit Start Date Stop Date Quantity Comments Source History of tobacco Current smoker Un iversity of use [facility] Cigarette 2022-09-29 2022-09-29 University of pack-years 00:00:00 00:00:00 [place] [facility] Tobacco use and 2022-09-29 2022-09-29 Smokeless Universit y of exposure 00:00:00 00:00:00 tobacco non-user [place] [facility] Alcohol intake 2022-09-29 2022-09-29 Current drinker Unive rsity of 00:00:00 00:00:00 of alcohol [place] Espinoza tineo (finding) [facility] Tobacco Comment 2022-09-29 2022-09-29 Would randomly Unive rsity of 00:00:00 00:00:00 smoke between Ambrosio rios 18- 19 Cancer Center Cigarettes smoked 2022-09-29 2022-09-29 Univers ity of current (pack per 00:00:00 00:00:00 [place] Melissa Fournier ) - Reported Cancer Ce nter Sex Assigned At [birth year] F Universit y of 00:00:00 00:00:00 Ambrosio Doran [facility] Smoking Status Start Date Stop Date Source Ex-smoker 2022-09-29 00:00:00 2022-09-29 [facility] Medications Ordered Filled Start Stop Current Ordering Indication Dosage Frequency Signature Comments Components Source Medication Medication Date Date Medication? Clinician (SIG) Name Name cetirizine Yes 10mg Take 1 Unive rs (ZyrTEC) 10 2-27 tablet (10 it y of mg tablet 15:14: mg) by [place] 50 mouth daily. Erika gonzales [facility] [place] cholecalcif Yes Take by Uni vers lee, 2-27 mouth. ity of vitamin D3, 15:14: [place] 50 mcg 50 (2,000 Anderso unit) n capsule Cancer Center cetirizine Yes 10mg Take 10 mg U nivers (ZyrTEC) 10 2-28 by mouth ity of mg tablet 09:52: daily. [place] 07 MD Erika gonzales [facility] cholecalcif Yes Take by Uni vers lee, 2- mouth. ity of vitamin D3, 09:52: [place] (Vitamin 07 D3) 50 mcg Anderso (2,000 n unit) Cancer capsule Center ergocalcife 2021- No Unive rs rol 09-24- ity of (DRISDOL) 00:00: 00:00 Ambrosio 50,000 00 :00 units Erika iraheta n [facility] etonogestre Yes Univer s l 7-07 ity of (NEXPLANON 00:00: [place] SUBDERMAL) 00 MD Erika g[facility] etonogestre Yes Univer s l 7-07 ity of (NEXPLANON 00:00: [place] SUBDERMAL) 00 MD E[facility] g[facility] NUVARING 2021- No INSERT Univer s 0.12-0.015 05-02 VAGINALLY ity of mg/24 hr 00:00: 00:00 [place] vaginal 00 :00 DIRECTED. MD aaron g[facility]ales [facility] frovatripta 2017- Yes as needed. Univers n (FROVA) 2-28 ity of 2.5 MG 00:00: [place] tablet 00 MD Erika gonzales [facility] frovatripta 0 Yes as needed. Univers n (FROVA) 2-28 ity of 2.5 MG 00:00: [place] tablet 00 MD Erika gonzales [facility] Immunizations Ordered Filled Immunization Date Status Comments [facility] e Immunization Name Name Dane SARS-CoV-2 2021-08-18 Completed Univer sity of Vaccination 00:00:00 Ambrosio foss [facility] [place] Dane SARS-CoV-2 2021-08-18 Completed Univer sity of Vaccination 00:00:00 Ambrosio foss [facility] Vital Signs Vital Name Observation Time Observation Value Comments Source HEIGHT 2020-09-28 11:09:00 170.5 cm WEIGHT 2020-09-28 11:09:00 75.9 kg Systolic blood 2022-09-29 21:13:00 145 mm[Hg] Univer sity of pressure [facility] Diastolic blood 2022-09-29 21:13:00 67 mm[Hg] Unive rsity of pressure [facility] Heart rate 2022-09-29 21:13:00 77 /min Universi ty of [facility] Respiratory rate 2022-09-29 21:13:00 16 /min Univ ersity of [facility] Systolic blood 2021-09-30 15:49:00 131 mm[Hg] Univer sity of pressure [facility] Diastolic blood 2021-09-30 15:49:00 87 mm[Hg] Unive rsity of pressure [facility] Heart rate 2021-09-30 15:49:00 100 /min Universi ty of [facility] Respiratory rate 2021-09-30 15:49:00 18 /min Univ ersity of [facility] Body height 2021-09-30 15:49:00 170.5 cm Universi ty of [facility] Body weight 2021-09-30 15:49:00 77.6 kg Universi ty of [facility] BMI 2021-09-30 15:49:00 26.69 kg/m2 [facility] MD [facility] Procedures Procedure Date / Time Performed Performing Clinician Sourc e MAMMO DIGITAL 2022-09-29 20:39:08 Yuki Ferris Y Kennard o f [place] SCREENING BILATERAL W MD Erika gonzales [facility] NEAL [place] US BREAST COMPLETE 2021-09-30 18:47:33 Yuki Ferris [facility] BILATERAL MD Cruz [facility] er Center MAMMO DIGITAL 2021-09-30 17:26:00 Yuki Ferris Kennard o f [place] DIAGNOSTIC BILATERAL W MD [facility] NEAL [place] Plan of Care Planned Activity Planned Date Details Comments Source Future Scheduled 2022-10-10 COVID-19 Vaccination Uni vers[facility] [place] Test 09:52:30 (2 - Booster for [facility] Cancer Adne series) [code Center = COVID-19 Vaccination (2 - Booster for [place] series)] Future Scheduled 2021-10-25 COVID-19 Vaccination Uni versity of [place] Test 10:07:34 (2 - Booster for [facility] Cancer Dane series) [code Center = COVID-19 Vaccination (2 - Booster for Dane series)] Encounters Start End Encounter Admission Attending Care Care Encounter Source Date/Time Date/Time Type Type Clinicians Facility Department ID 2020-09-14 Outpatient SYSTEMRICK MDA [id number] 11:45:16 PROVIDER Rogelio gonzales 2022-09-29 2022-09-29 Office Yuki Ferris 1.2.840.1 [id number] [facility] 16:20:00 16:20:00 Visit Cate Colin [id number] ity of 3.412.2.7 [place] .3.542750 .8 [facility] 2022-09-29 2022-09-29 Outpatient EL RICK FERRIS MDA [id number] 14:40:30 15:41:14 YUKI gonzales 2022-09-29 2022-09-29 Ancillary Ariana Ferris2.840.1 [id number] Barbara 14:05:00 14:40:00 Procedure Yuki Y 92891.1.1 it y of 3.412.2.7 [place] .3.949029 MD [facility] 2022-09-29 2022-09-29 Outpatient VICKI FERRIS MDA [facility] [id number] MD 13:41:04 13:41:04 YUKI Rogelio o n 2022-09-29 2022-09-29 Travel 1.2.840.1 [id number] Univers 00:00:00 00:00:00 42559.1.1 350.1.13.41 ity of 3.412.2.7 2.[place].7.3.698 [place] .3.522257 084.8 MD Cook8 [facility] 2021-10-15 2021-10-15 Telemedici Audrey Jessicaa Y 1.2.840.1 [id number] Univers 10:00:00 10:29:15 Linda Beard 18529.1.1 ity of 3.412.2.7 [place] .3.547856 MD [facility] 2021-09-30 2021-09-30 Clinical Jase 1.2.840.1 [id number] Univers 15:00:00 15:20:00 Support Yuki Y 33132.1.1 ity of 3.412.2.7 [place] .3.594334 MD [facility] 2021-09-30 2021-09-30 Ancillary EL 1.2.840.1 [id number] Univers 12:15:00 14:00:00 Procedure 44270.1.1 it y of 3.412.2.7 [place] .3.017608 MD [facility] 2021-09-30 2021-09-30 Ancillary EL 1.2.840.1 [id number] Univers 11:30:00 12:30:00 Procedure 57103.1.1 it y of 3.412.2.7 [place] .3.484867 MD [facility] 2021-09-30 2021-09-30 Office Klever Xiong 1.2.840.1 [id number] [facility] 10:00:00 10:38:39 Visit Paulinakristi Yuki Y 71843.1.1 ity of 3.412.2.7 [place] .3.194531 .8 [facility] 2021-09-30 2021-09-30 Travel 1.2.840.1 [id number] [id number] [facility] 00:00:00 00:00:00 92900.1.1 350.1.13.41 ity of 3.412.2.7 2.[place].7.3.698 [place] .3.921950 084.8 .8 [facility] 2020-09-28 2020-09-28 Outpatient EL MAGAN, MDA MDA [id number] MD 13:33:35 13:33:35 TIMBO gonzales 2020-09-28 2020-09-28 Outpatient EL REFINETTI, MDA MDA [id number] 13:03:28 13:03:28 ALAINA Vasquezers o christian 2020-09-28 2020-09-28 Outpatient EL REFINETTI, MDA MDA [id number] 13:03:27 13:03:27 ALAINA Vasquezers o christian 2020-09-28 2020-09-28 Outpatient EL REFINETTI, MDA MDA [id number] 13:03:25 13:03:25 ALAINA Vasquezers o christian 2020-09-28 2020-09-28 Outpatient EL REFINETTI, MDA MDA [id number] 13:03:24 13:03:24 ALAINA Vasquezers o christian 2020-09-28 2020-09-28 Outpatient EL MAGAN, MDA MDA [id number] MD 12:47:21 12:47:21 TIMBO gonzales 2020-09-28 2020-09-28 Outpatient EL REFINETTI, MDA MDA [id number] 11:04:10 12:27:10 ALAINA Vasquezers o christian 2020-09-28 2020-09-28 Outpatient EL REFINETTI, MDA MDA [id number] 10:56:20 10:56:39 ALAINA gonzales 2020-09-25 2020-09-25 Outpatient VICKI CORDERO MDA [facility] [id number] 14:46:44 15:04:50 ALAINA gonzales 2020-07-13 2020-07-13 Outpatient VICKI CORDERO MDA [facility] [id number] 17:27:05 17:27:05 ALAINA gonzales Results Test Description Test Time Test Comments Results Result Comments Source Mammography Digital Diagnostic Bilateral with Neal 2021-09-04 8 19:16:33 Test Item Value Reference Range Interpretation Comme nts Radiology Study observation (narrative) (test code = 09575-1) IMP (test code = IMP) Asymmetry in [...] outside location on 04/21/2019 and12/28/2019, and at [facility] on 09/28/2020 werereviewed. FINDINGS:The breasts are extremely [...] Evaluation Lab Interpretation (test code = Abnormal 69765-7) [facility]
--- OUTSIDE RECORDS SUMMARY | 2023-01-07 06:45 | XMS REPORT | Clinical Summary ---
:[address] [facility] MD [address] [facility] Center Address [address] [place] [address] Care Team Providers Name Role Phone Samantha Johnston MD Primary Care Provider [phone] Ian Sneed MD Unavailable Allergies Active Allergy Reactions Severity Noted Date Comments Cefuroxime Axetil Hives 05/15/2017 Medications Medication Sig Dispensed Refills Start Date End Date Status frovatriptan (FROVA) as needed. 3 09/30/2016 Active 2.5 MG tablet cetirizine (ZyrTEC) 10 Take 1 tablet (10 0 Active mg tablet mg) by mouth daily. etonogestrel (NEXPLANON 0 02/07/2020 Active SUBDERMAL) cholecalciferol, Take by mouth. 0 Active vitamin D3, 50 mcg (2,000 unit) capsule Active Problems Problem Noted Date Lump in right breast 05/15/2017 Overview: Images from the original note were not i ncluded. H/O RIGHT breast lump evaluated in 2017 with US findings suggestive of normal ridge of fibroglandular tissue with mild fibrocystic changes and cysts noted. Imaging performed at [facility] [place] trianat: 12/28/2019 BDMMG+US (BIRADS 3) 08/28/2020 R US (BIRADS 2) 01/03/2020 [facility] r Panel is negative for 47 gene(s) variants that are associated with genetic disorders. Encounters Date Type Specialty Care Team Description 09/29/2022 Office Visit Cancer Prevention Yuki Laguna Encounter for other screening for malignant neoplasm of breast (Primary Dx); Y, GOLD MINER BLASTING Family history of malignant neoplasm of breast; Cristi, Cate Extremely dens e breast composition S, GOLD MINER BLASTING 09/29/2022 Ancillary Procedure Radiology Yuki Laguna Screeni ng Y, GOLD MINER BLASTING 09/29/2022 Travel after 01/07/2022 Immunizations Name Administration Dates Next Due Dane SARS-CoV-2 Vaccination 08/18/2021 Surgical History Surgery Date [...] Yamil Esparza Multiple Myeloma Paternal Grandfather Yamil Esparza 60's Breast cancer Paternal Grandmother Jessica Penfield 80's Ovarian cancer Neg Hx Pancreatic cancer [...] Tobacco Use Types Packs/Day Years Used Date Smoking Tobacco: Former Cigarettes 0.3 1 Smokeless Tobacco: Never Tobacco Cessation: Counseling Given: Not Answered Comments: Would randomly smoke between 1 8- 19 Alcohol Use Standard Drinks/Week Comments Yes 1 (1 standard drink = 0.6 oz pure alcoho l) Sex Assigned at Date Recorded Female 09/23/2021 8:33 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 Job Start Date Occupation Industry Not on file Not on file Not on file Obstetrics History Para Term AB IAB SAB Ectopic Multiple Living Live Births 3 2 1 1 2 2 Date Outcome GA Total Labor/2nd/3rd Weight Sex Delivery Anes PTL Liset A 1 A5 Name Clin Labor AB Para Para Comments 1 set of twins Menarche: at [...] Sign Reading Time Taken Comments Blood Pressure 145/67 09/29/2022 3:13 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 Pulse 77 09/29/2022 3:13 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 Temperature - - Respiratory Rate 16 09/29/2022 3:13 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 Oxygen Saturation - - Inhaled Oxygen Concentration - - Weight - - Height - - Body Mass Index - - Plan of Treatment Date Type Specialty Care Team Description 09/29/2023 Ancillary Procedure Radiology Marcos Colin S, GOLD MINER BLASTING [address] [place], [place] [address] (Wo rk) 09/29/2023 Office Visit Cancer Prevention Cate Colin, GOLD [employer]ER BLASTING [address] [place], [place] [address] (Wo rk) Health Maintenance Due Date Last Done Comments COVID-19 Vaccination (2 - Booster for Dane series) 10/13/2021 08/18/2021 Procedures Procedure Name Priority Date/Time Associated Diagnosis Comme nts MAMMO DIGITAL Routine 09/29/2022 2:39 PM Screening Results for this SCREENING BILATERAL COMMUNITY CENTER COORDINATOR procedur e are in W NEAL the results section. after 01/07/2022 Results Mammography Digital Screening Bilateral with Neal (09/29/2022 2:39 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) Anatomical Region Laterality Modality Breast Bilateral Mammography Specimen (Source) Anatomical Collection Method Collection Time Re ceived Time Location / / Volume Laterality 09/29/2022 2:55 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 Impressions 09/29/2022 2:55 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 There is no mammographic evidence of malignancy. Follow-up mammogram at age 40 is recomme nded. BI-RADS Category 2: Benign Finding(s) Narrative 09/29/2022 2:55 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 CLINICAL INDICATION: Patient is a 36 year old female and is s een for screening. MAMMO DIGITAL SCREENING BILATERAL W NEAL Digital Mammogram evaluated with Compute r Aided Detection (CAD). COMPARISON: The present examination has been compare d to prior imaging studies performed at an outside location on 04/21/2019 and , and at [facility] on 09/28/2020 and 0 09/30/2021. FINDINGS: The breasts are extremely dense, which l owers the sensitivity of mammography. There are benign bilateral oval circumsc ribed masses. There are no suspicious calcifications, masses or other findings . Tomosynthesis performed in CC and MLO pr ojections. Procedure Note Renetta Jackson MD - 09/29/2022Formatti ng of this note might be different from the original. CLINICAL INDICATION: Patient is a 36 year old female and is s een for screening. MAMMO DIGITAL SCREENING BILATERAL W NEAL Digital Mammogram evaluated with Compute r Aided Detection (CAD). COMPARISON: The present examination has been compare d to prior imaging studies performed at an outside location on 04/21/2019 and , and at [facility] on 09/28/2020 and 09/30/2021. FINDINGS: The breasts are extremely dense, which l owers the sensitivity of mammography. There are benign bilateral oval circumsc ribed masses. There are no suspicious calcifications, masses or other findings . Tomosynthesis performed in CC and MLO pr ojections. IMPRESSION: There is no mammographic evidence of mal ignancy. Follow-up mammogram at age 40 is recomme nded. BI-RADS Category 2: Benign Finding(s) Yuki Laguna APRN IMG MAMMOGRAPHY ORDERABLES after 01/07/2022 Insurance Payer Benefit Plan / Subscriber ID Effective Dates Phone Addre ss Type Group [employer] [place] HMO [id number] 2019-Present PO AFSHAN X [id number] O BLUE SHIELD BLUE[place] [employer] [phone] Care Teams Emergency Department Physician Relationship Specialty Start Date End Date Samantha Johnston PCP - General Breast Surgery 05/12/17 MD Lola [address] [place] [address] [phone] Ian Sneed MD PCP - External Referring 05/12/[address] [place] [address] [place], [place] [id number]
[2023-01-07 07:47] LABS: Absolute Lymphocytes (CBC) 1.8 K/uL (0.7-4.9); Lymphocytes % 24.7 % (15.3-44.8); MCV 91.8 fL (80-100); MPV 8.3 fL (7.6-11.3); RBC Red Blood Cell Count 4.25 M/uL (3.86-4.86)
[2023-01-07 07:50] LABS: Specific Gravity > 1.030 (1.005-1.030)
[2023-01-07 07:57] LABS: Specific Gravity > 1.030 (1.005-1.030); Urine Bacteria <20 /HPF (<20); Urine Bilirubin NEGATIVE (Negative); Urine Blood 3+ (Negative); Urine Clarity Extremely Turbid (Clear); Urine Color Yellow (Yellow); Urine Glucose NEGATIVE (Negative); Urine Mucus Slight /HPF (None Seen); Urine Protein TRACE (Negative); Urine RBC >50 /HPF (None Seen); Urine Urobilinogen Normal (Normal); Urine pH 5.5 (5.0-7.0)
[2023-01-07 08:02] LABS: Bilirubin Total 0.3 mg/dL (0.2-1.0); Potassium 3.9 mEq/L (3.5-5.1); Protein, Total 7.4 g/dL (6.4-8.2)
--- NOTE | 2023-01-07 08:34 | RAD REPORT ---
EXAM DESCRIPTION: CTAbdomen Pelvis W Contrast - 01/07/2023 8:11 am CLINICAL HISTORY: Abdominal pain. right flank and RLQ abd pain COMPARISON: Abdomen Pelvis W Contrast dated 05/19/2022; CT ABD PELVIS W CONTRAST dated 10/23/2014 TECHNIQUE: Biphasic CT imaging of the abdomen and pelvis was performed with 100 ml non-ionic IV cont rast. All CT scans are performed using dose optimization technique as appropriate and may include automated exposure control or mA/KV adjustment according to patient size. FINDINGS: The lung bases are clear. The liver, spleen, pancreas, adrenal glands and left kidney are within normal limits. 2 mm calculus i s seen at the right UVJ resulting in mild right hydronephrosis and hydroureter. Additional small punc kaur right renal calculi also present. No bowel obstruction, free air, free fluid or abscess. The appendix is normal. No evidence of signi ficant lymphadenopathy. No suspicious bony findings. IMPRESSION: 2 mm calculus right UVJ resulting in mild right hydronephrosis and hydroureter. Punctate right nephrolithiasis without hydronephrosis.
[2023-01-07] MEDS ORDERED: TAMSULOSIN 0.4 MG SR CAP ONE (08:49)
[2023-01-07] MEDS ORDERED: KETOROLAC 30 MG/ML INJ ONE (08:49)
[2023-01-07] MEDS ORDERED: MAGNESIUM SULFATE 1 gm IVPB 1 GM/100 ML BAG IV ONE (08:50)
--- NOTE | 2023-01-07 09:39 | EDPHYS ---
Physician Documentation [facility] Name: Ghislaine Cee Age: 37 yrs Sex: Female : 1985 Arrival Date: 01/07/2023 Time: 06:42 Bed 5 Private MD: ED Physician Shawn Fischer HPI: 01/07 08:07 This 37 yrs old Female presents to ER via Ambulatory with complaints of Flank Pain, rn Pelvic Pain. 08:07 The patient presents with abdominal pain right lower quadrant. Onset: The rn symptoms/episode began/occurred this morning. The symptoms do not radiate. Associated signs and symptoms: Pertinent negatives: blood in stools, chest pain, constipation, shortness of breath, vaginal discharge, vomiting blood. The symptoms are described as intermittent, sharp. Modifying factors: The symptoms are alleviated by nothing, the symptoms are aggravated by nothing. Severity of pain: At its worst the pain was moderate in the emergency department the pain has improved. The patient has experienced a previous episode. Pt reports right sided abd and flank pain, began this AM, nothing makes it better or worse, hx of similar pain and was ovarian cyst, had ovary and right tube removed. . 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 - Social history:: Smoking status: Patient denies any tobacco usage or history of. - Family history:: not pertinent. - Hospitalizations: : No recent hospitalization is reported. 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 Exam: 08:07 Constitutional: This is a well developed, well nourished patient who is awake, alert, rn and in no acute distress. Head/Face: Normocephalic, atraumatic. Cardiovascular: Regular rate and rhythm. No pulse deficits. Respiratory: No increased work of breathing, no retractions or nasal flaring. Abdomen/GI: soft, + right lower quadrant tenderness, no mass, no rebound or peritoneal signs. Skin: Warm, dry MS/ Extremity: Pulses equal, no cyanosis. Neuro: Awake and alert, GCS 15 Vital Signs: 07:03 BP 131 / 72; Pulse 72; Resp 16; Temp 99(O); Pulse Ox 100% ; Pain 3/10; vg1 08:00 BP 134 / 83; Pulse 67; Resp 16; Pulse Ox 98% on R/A; vg1 09:07 BP 125 / 83; Pulse 60; Resp 14; Pulse Ox 100% ; vg1 07:03 Pain Scale: Adult vg1 MDM: 07:01 Patient medically screened. rn 09:37 Differential diagnosis: appendicitis, non-specific abd pain, Ureterolithiasis, urinary rn tract infection. Data reviewed: vital signs, nurses notes, lab test result(s), radiologic studies, CT scan, and as a result, I will discharge patient. Counseling: I had a detailed discussion with the patient and/or guardian regarding: the historical points, exam findings, and any diagnostic results supporting the discharge/admit diagnosis, lab results, radiology results, the need for outpatient follow up, to return to the emergency department if symptoms worsen or persist or if there are any questions or concerns that arise at home. Special discussion: Based on the patient's Hx, exam, and Dx evaluation, there is no indication for emergent surgery or inpatient Tx. It is understood by the patient/guardian that if the Sx's persist or worsen they need to return immediately for re-evaluation. I discussed with the patient/guardian in detail that at this point there is no indication for admission to the hospital. It is understood, however, that if the symptoms persist or worsen the patient needs to return immediately for re-evaluation. ED course: 2mm right UVJ stone, now pain free, will dc home with return precautions, abx, and prn pain meds. . 01/07 07:14 Order name: CBC with Diff; Complete Time: 08: rn 01/07 07:14 Order name: CMP; Complete Time: 08: rn 01/07 07:14 Order name: Test, Urine; Complete Time: 08:05 rn 01/07 07:14 Order name: Urinalysis w/ reflexes; Complete Time: 08:05 rn 01/07 07:14 Order name: CT Abd/Pelvis - IV Contrast Only; Complete Time: 08:36 rn 01/07 07:14 Order name: IV Saline Lock; Complete Time: 07:36 rn 01/07 07:14 Order name: Labs collected and sent; Complete Time: 07:36 rn Administered Medications: 08:47 Drug: Ketorolac IVP 15 mg Route: IVP; Site: right antecubital; vg1 08:49 Drug: Magnesium Sulfate IVPB 1 grams Route: IVPB; Infused Over: 1 hrs; Site: right vg1 antecubital; 08:50 Drug: Flomax PO 0.4 mg Route: PO; vg1 Disposition Summary: 01/07/23 09:39 Discharge Ordered Location: Home rn Problem: new rn Symptoms: have improved rn Condition: Stable rn Diagnosis - Calculus of ureter rn Followup: rn - With: Private Physician - When: As needed - Reason: Recheck today's complaints, Re-evaluation by your physician Discharge Instructions: - Discharge Summary Sheet rn - Kidney Stones rn - Renal Colic rn - Dietary Guidelines to Help Prevent Kidney Stones rn Forms: - Medication Reconciliation Form rn - Thank You Letter rn - 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
--- NOTE | 2023-01-07 09:39 | ER ---
Nurse's Notes [facility] Name: Ghislaine Cee Age: 37 yrs Sex: Female : 1985 Arrival Date: 01/07/2023 Time: 06:42 Bed 5 Private MD: Diagnosis: Calculus of ureter Presentation: 01/07 07:03 Chief complaint: Patient states: Right flank pain that radiates to pelvic area that vg1 began this morning around 0200. Denies N/V/D or any urinary symptoms. 07:03 Ebola Screen: Patient negative for fever greater than or equal to 101.5 degrees vg1 Fahrenheit, and additional compatible Ebola Virus Disease symptoms Patient denies exposure to infectious person. Patient denies travel to an Ebola-affected area in the 21 days before illness onset. Initial Sepsis Screen: Does the patient meet any 2 criteria? No. Patient's initial sepsis screen is negative. Does the patient have a suspected source of infection? No. Patient's initial sepsis screen is negative. Risk Assessment: Do you want to hurt yourself or someone else? Patient reports no desire to harm self or others. Onset of symptoms was January 07, 2023. 07:03 Method Of Arrival: Ambulatory vg1 07:03 Acuity: PAYTON 3 vg1 07:20 Coronavirus screen: Vaccine status: Patient reports receiving the 1st dose of the Covid vg1 vaccine. Triage Assessment: 07:03 General: Appears in no apparent distress. comfortable, Behavior is calm, cooperative. vg1 Pain: Complains of pain in posterior aspect of right lateral abdomen and pelvic Pain currently is 3 out of 10 on a pain scale. at worst was 7 out of 10 on a pain scale. Quality of pain is described as radiating, sharp, stabbing. EENT: No signs and/or symptoms were reported regarding the EENT system. Neuro: Level of Consciousness is awake, alert, obeys commands, Oriented to person, place, time, situation. Cardiovascular: Patient's skin is warm and dry. Respiratory: Airway is patent Respiratory effort is even, unlabored. GI: Patient currently denies diarrhea, nausea, vomiting. : Denies burning with urination, urinary frequency, urgency. Derm: Skin is pink, warm \T\ dry. Musculoskeletal: Circulation, motion, and sensation intact. 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 - Social history:: Smoking status: Patient denies any tobacco usage or history of. - Family history:: not pertinent. - Hospitalizations: : No recent hospitalization is reported. Screenin:18 [facility] ED Fall Risk Assessment (Adult) History of falling in the last 3 months, vg1 including since admission No falls in past 3 months (0 pts). Abuse screen: Denies threats or abuse. Denies injuries from another. Nutritional screening: No deficits noted. Tuberculosis screening: No symptoms or risk factors identified. Assessment: 07:18 Reassessment: SEE TRIAGE. vg1 08:07 Reassessment: Patient appears in no apparent distress at this time. No changes from vg1 previously documented assessment. Patient and/or family updated on plan of care and expected duration. Pain level reassessed. Patient is alert, oriented x 3, equal unlabored respirations, skin warm/dry/pink. 09:07 Reassessment: Patient appears in no apparent distress at this time. No changes from vg1 previously documented assessment. Patient is alert, oriented x 3, equal unlabored respirations, skin warm/dry/pink. Vital Signs: 07:03 BP 131 / 72; Pulse 72; Resp 16; Temp 99(O); Pulse Ox 100% ; Pain 3/10; vg1 08:00 BP 134 / 83; Pulse 67; Resp 16; Pulse Ox 98% on R/A; vg1 09:07 BP 125 / 83; Pulse 60; Resp 14; Pulse Ox 100% ; vg1 07:03 Pain Scale: Adult vg1 ED Course: 06:45 Patient arrived in ED. ja2 07:01 Shawn Fischer MD is Attending Physician. rn 07:03 Tali Salgado RN is Primary Nurse. vg1 07:03 Arm band placed on. vg1 07:16 Triage completed. vg1 07:18 Patient has correct armband on for positive identification. Bed in low position. Call vg1 light in reach. Side rails up X 1. 07:18 No provider procedures requiring assistance completed. vg1 07:30 Initial lab(s) drawn, by me, sent to lab. Urine collected: clean catch specimen. vg1 Inserted saline lock: 20 gauge in right antecubital area, using aseptic technique. Blood collected. 08:13 CT Abd/Pelvis - IV Contrast Only In Process Unspecified. EDMS 10:18 IV discontinued, intact, bleeding controlled, No redness/swelling at site. ld1 Administered Medications: 08:47 Drug: Ketorolac IVP 15 mg Route: IVP; Site: right antecubital; vg1 08:49 Drug: Magnesium Sulfate IVPB 1 grams Route: IVPB; Infused Over: 1 hrs; Site: right vg1 antecubital; 08:50 Drug: Flomax PO 0.4 mg Route: PO; vg1 Medication: 07:21 VIS not applicable for this client. vg1 Outcome: 09:39 Discharge ordered by . rn 10:18 Discharged to home ambulatory. ld1 10:18 Condition: stable 10:18 Discharge instructions given to patient, Instructed on discharge instructions, follow up and referral plans. medication usage, Demonstrated understanding of instructions, follow-up care, medications, Prescriptions given X 3. 10:18 Patient left the ED. ld1 Signatures: Dispatcher [employer] EDMS Shawn Fischer MD MD rn Garcia, Victoria RN RN vg1 Ibeth Arredondo RN RN ld1 Linnea Chappell
[2023-01-07 10:40] VITALS: TEMP 99
[2023-01-07 10:42] VITALS: BP 125/83; O2SAT 100
== END 2023-01-07 10:18 | disposition home or self-care (01) ==
LOC: ER 06:42
DX: N20.1 Calculus of ureter (principal); R10.31 Right lower quadrant pain; R10.2 Pelvic and perineal pain; Z88.8 Allergy status to other drugs, medicaments and biological substances
CPT/HCPCS: 85025; 81001; 36415; 81025; 80053; 74177; 96375; 96374; 99284; Q9967; J3475